=== PATIENT | male | born 1930 | race Caucasian/White ===

== ENCOUNTER 2016-11-28 11:06 | Inpatient (IN) | payer MEDICARE, BC ==
[~2016-11-28] VITALS: Ht 165.1 cm; Wt 101.0 kg
--- NOTE | ~2016-11-28 | CO ---
ADMIT: 11/28/2016 RM/LOC: 502 [facility] MR#: [id number] [address] [place] [phone] ANNAMARIA SHAW [address] [place] [address] Consultation Report SEX: M AGE: 86 : 1930 Corrected: 11/29/2016 0459 njv DATE OF CONSULTATION: 11/28/2016 ATTENDING PHYSICIAN: Maycol Agustin CONSULTING PHYSICIAN: Kurt Andujar MD CHIEF COMPLAINT: Left hip pain. HISTORY OF PRESENT ILLNESS: The patient is an 86-year-old male, who lives in a half-way in [place], normally sees Dr. Howard. He slipped and fell this morning, had an unwitnessed fall none noting his fall in the half-way in [place]. Found to have a right arm laceration. X-ray showed a left intertrochanteric fracture. He was transferred here for definitive care and treatment. PAST MEDICAL HISTORY: Past medical problems include chronic anemia, reflux, hypothyroidism, prostate cancer, hyperlipidemia, and dementia. ALLERGIES: PENICILLIN, SULFA, CODEINE, IODINE, SHELLFISH, AND VICODIN. SOCIAL HISTORY: Lives in half-way. REVIEW OF SYSTEMS: Negative. PHYSICAL EXAMINATION: An 86-year-old male, quite demented, pretty much averbal. He has pain with any motion of the left hip. Left leg slightly shortened and externally rotated. He has good pulses, full motor function, and normal sensation. DIAGNOSTIC DATA: X-rays; AP and lateral of left hip shows a left displaced intertrochanteric fracture, it is a basicervical type fracture, fairly low. No evidence of any pathologic lesions. ADMIT: 11/28/2016 RM/LOC: 502 [facility] MR#: [id number] [address] [place], [place] [id number] ANNAMARIA SHAW [address] [place] [address] Consultation Report SEX: M AGE: 86 : 1930 IMPRESSION: 1. Left basicervical intertrochanteric hip fracture. 2. Significant dementia. PLAN: At this point, we talked about different options at length with the niece. We are going to plan on proceeding with a left hip open reduction and internal fixation with trochanteric femoral nailing. They are aware of the risks, benefits, and options, and agreed to proceed. Dr. Agustin will clear today from a medical standpoint. Plan on proceeding to the OR tomorrow. Kurt Andujar MD/ leilani JOB #: [id number] CC: Maycol Agustin, Attending Physician Maycol Agustin, Family Physician Corrected: 11/29/2016 0459 njv
--- NOTE | ~2016-11-28 | CO ---
ADMIT: 11/28/2016 RM/LOC: 502 [facility] MR#: [id number] [id number] [place], [place] [address] ANNAMARIA SHAW [address] [place] [address] Consultation SEX: M AGE: 86 : 1930 DATE OF CONSULTATION: 12/02/2016 ATTENDING PHYSICIAN: Maycol Agustin CONSULTING PHYSICIAN: Charito Burns MD PROBLEM: Scrotal mass. HISTORY OF PRESENT ILLNESS: This 86-year-old gentleman, lives in a retirement in [place] and is under the care of Dr. Howard. On the day of admission, he slipped and fell, which was unwitnessed causing a left intratrochanteric fracture. On 11/29/2016, he underwent a left hip open reduction internal fixation with trochanteric femoral nail. Postoperatively, he has done well from orthopedic standpoint, but he was noted to have a large mass on the scrotum prompting urologic consultation. The patient is demented and is unable to give history. PAST HISTORY MEDICATIONS: Please see chart. ALLERGIES: PENICILLIN, SULFA, CODEINE, IODINE, SHELLFISH, AND VICODIN. OPERATIONS: As previously stated. REVIEW OF SYSTEMS: He does have a history of hyperlipidemia, dementia, reflux, chronic anemia, hypothyroidism, and prostate carcinoma. FAMILY HISTORY: Negative for urologic problems. SOCIAL HISTORY: He does live in a retirement. PHYSICAL EXAMINATION: GENERAL: This is an elderly 86-year-old demented male, who does not verbalize. ABDOMEN: Soft without masses or tenderness. Scrotum is normal with a pedunculated large skin tag in the most dependent portion on the right, which appears to be reddened and irritated, but no ulcerative lesions noted. ADMIT: 11/28/2016 RM/LOC: 502 [facility] MR#: [id number] 2620 [facility] [address] [place] [phone] ANNAMARIA SHAW [address] [place] [address] Consultation SEX: M AGE: 86 : 1930 IMPRESSION: Left scrotal skin tag. PLAN: We will plan to locally excise this in the near future at bedside. Thank you for allowing us to assist in the care of Mr. Shaw and we will follow along with you. Charito Burns MD/ leilani JOB #: [id number] CC: Maycol Agustin, Attending Physician Maycol Agustin, Family Physician MD Vivek Jacome MD Gregory S Sextro, MD
--- NOTE | 2016-11-30 13:15 | ER ---
ADMIT: 11/28/2016 RM/LOC: 502 [facility] MR#: [id number] 2620 [facility] [address] [place], [place] [address] ANNAMARIA SHAW [address] [place] [address] Emergency Room Report SEX: M AGE: 86 : 1930 DATE: 11/28/2016 BRIEF ADDENDUM: Please see my T-sheet for complete review of systems, past medical history, and physical exam. PRIMARY CARE DOCTOR: Trevor Ramirez from [place], [place]. CHIEF COMPLAINT: Fall. HISTORY OF PRESENT ILLNESS: This is an 86-year-old, demented male, who comes to us from [facility] in [place], [place]. He sustained an unwitnessed fall at the [facility] this morning in [place], [place]. Sustained a laceration of his right wrist and complained of left hip pain. He was transported to the [facility], where he was seen and evaluated, diagnosed with a left hip fracture. They did phone Dr. Gonsalez, who instructed them transfer here for further evaluation and management. They also did repair a 6 cm laceration to the right wrist. He is examined today, complains of primarily left hip pain. He does have a covered wound on his right wrist. REVIEW OF SYSTEMS: Difficult to obtain secondary to dementia. PAST MEDICAL HISTORY: Coronary artery disease, anemia, GERD, hypothyroidism, prostate cancer, hyperlipidemia, and dementia. ALLERGIES: TO PENICILLIN, SULFA, CODEINE, IODINE, SHELLFISH, AND VICODIN. COURSE IN THE EMERGENCY ROOM: PHYSICAL EXAMINATION: GENERAL: The patient was seen and examined. He is afebrile and nontoxic. Confused and disoriented secondary to his underlying dementia. HEENT: No obvious head trauma. NECK: Nontender. He does turn from left to right without complaints of pain. Eyes are equal and reactive. Extraocular testing is intact. He tracks across midline. Throat, non erythematous. No obvious dental injuries. CHEST: Nontender. Breath sounds normal bilaterally. HEART: Heart sounds. No gallops, murmurs, or rubs. ABDOMEN: Soft and nontender. NEURO: He is disoriented. He has a known dementia. He follows commands. Does not answer questions. He does move all 4 extremities. SKIN: Warm and dry. He does have a covered injury on his right wrist. BACK: No vertebral tenderness per his report. However, he is unable to sit up for me to assess this. EXTREMITIES: Atraumatic. PELVIS: Stable. He is unable to bear weight. Complains of left hip pain. I did review the fracture, significant for left hip fracture. LABORATORY DATA: Labs were obtained at [facility]. White count 7.8, hemoglobin 12.9, hematocrit 37.0, platelets 132. Sodium 139, potassium 3.7, BUN 13, ADMIT: 11/28/2016 RM/LOC: 502 [facility] MR#: [id number] [facility] [address] [address] ANNAMARIA SHAW [address] [place] [address] Emergency Room Report SEX: M AGE: 86 : 1930 glucose 120, creatinine 0.98. He did have an elevated TSH. While at the department, I did get some PT and PTTs ordered as well as a type and screen. I did CT his head, pending at this time. Phoned Dr. Agustin, made him aware of the patient via [facility]. He will admit primary with consult to Dr. Gonsalez for Orthopedic surgery. IMPRESSION: 1. Left hip fracture. 2. Laceration 6 cm, right inner wrist. 3. Dementia. 4. Coronary artery disease. 5. Hypothyroidism. 6. Hyperlipidemia. DISPOSITION: The patient will be admitted to the care of J[facility]ago Call with consult to Dr. Gonsalez for Orthopedic Surgery for possible fixation. Questions sought and answered to best of the patient's satisfaction. Discharged in guarded condition. JEAN Gonzalez / Ernesto Monterroso MD / leilani JOB #: [id number] CC: Maycol Agustin MD, Attending Physician Maycol Agustin MD, Family Physician
--- NOTE | 2016-12-04 16:45 | OR ---
ADMIT: 11/28/2016 RM/LOC: 502 [facility] MR#: [id number] [id number] [place], [place] [address] ANNAMARIA SHAW [address] [place] [address] Operative/Delivery Room Report SEX: M AGE: 86 : 1930 SURGERY DATE: 12/03/2016 SURGEON: Charito Burns MD PREOPERATIVE DIAGNOSIS: Scrotal skin tag. POSTOPERATIVE DIAGNOSIS: Scrotal skin tag. OPERATION: Excision of scrotal skin tag. ANESTHETIC: Local. INDICATION FOR PROCEDURE: This is an 86-year-old gentleman who was admitted for hip fracture and on admission was noted to have a large skin tag involving the right hemiscrotum. He is now to undergo removal of his skin tag. DESCRIPTION OF PROCEDURE: With the patient in the supine position, his genitalia and surrounding skin were then prepped and draped in the usual sterile fashion. 1% Xylocaine without epinephrine was then used to locally infiltrate the base of the scrotal skin tag. After a suitable local anesthetic was obtained, the skin tag was sharply removed using the tenotomy scissors. The wound edges were then reapproximated using interrupted 4-0 chromic catgut suture in a horizontal mattress fashion. A sterile dressing was applied, and patient, having tolerated the procedure well, was left in his room. The skin tag was then submitted to pathology for final microscopic diagnosis. Charito Burns MD/ leilani JOB #: [id number] CC: Maycol Agustin, Attending Physician Maycol Agustin, Family Physician Maycol Agustin MD
--- NOTE | 2016-12-04 21:16 | OR ---
ADMIT: 11/28/2016 RM/LOC: 502 [facility] MR#: [id number] [address] [address] ANNAMARIA SHAW [address] [place] [address] Operative/Delivery Room Report SEX: M AGE: 86 : 1930 SURGERY DATE: 11/29/2016 SURGEON: Kurt Andujar MD PREOPERATIVE DIAGNOSIS: Left basicervical intertrochanteric hip fracture. POSTOPERATIVE DIAGNOSIS: Left basicervical intertrochanteric hip fracture. PROCEDURES: Left hip open reduction and internal fixation with trochanteric femoral nail. SENIOR DIGITAL DESIGNER: JEAN Bergman. COMPLICATIONS: None. BLOOD LOSS: 50 mL. COMPONENTS: 1. 130 degree x 11 mm Synthes TFN nail. 2. A 90 mm spiral blade. 3. A locking bolt. DESCRIPTION OF PROCEDURE: The patient was taken to the operating room, received a general anesthetic. The left leg was placed in a traction boot, right leg abducted out of the field. Closed reduction was performed. He had a basicervical fracture with some trochanteric comminution. We did not feel it was amenable to a bipolar, it was quite low. Because of this, we elected to proceed with TFN. At that point, AP lateral images confirmed adequate reduction. At that point, the hip was prepped and draped. We made an incision above the tip of the trochanter, placed a guide pin through the fracture site down the medullary canal. We reamed the proximal trochanteric ADMIT: 11/28/2016 RM/LOC: 502 [facility] MR#: [id number] [address] [address] [place] ANNAMARIA [address] [place] [address] Operative/Delivery Room Report SEX: M AGE: 86 : 1930 area of the reamer. At that point, placed a 130 degree x 11 mm nail down the medullary canal. At that point, we placed a guide pin into the center of the femoral head on AP and lateral images. We reamed the lateral cortex. We then impacted a 90 mm spiral blade with good purchase into the femoral head. At that point, we compressed the fracture at the basicervical area to try and further compress the fracture site. We then locked the bolt proximally, placed a 40 mm locking bolt distally with an external jig with no undue difficulty. At that point, AP lateral images confirmed adequate reduction and good placement of all hardware. We then irrigated out the wounds. Closed the deep fascia with 0 Vicryl, subcutaneous with 2-0 Vicryl, and placed prabha in the skin. Applied sterile dressings. He was awakened from anesthesia, taken to recovery room in stable condition. No complications. Kurt Andujar MD/ leilani JOB #: [id number] CC: Maycol Agustin, Attending Physician Maycol Agustin, Family Physician
[2016-12-06] MEDS ORDERED: FEOSOL-DPS325 MG PO (14:39)
[2016-12-06] MEDS ORDERED: COREG DPS12.5 MG PO (14:39)
[2016-12-06] MEDS ORDERED: FLOMAX DPS0.4 MG PO (14:39)
[2016-12-06] MEDS ORDERED: CULTURELLE1 CAP PO (14:39)
[2016-12-06] MEDS ORDERED: CLARITIN DPS10 MG PO (14:39)
[2016-12-06] MEDS ORDERED: MYRBETRIQ25 MG PO (14:40)
[2016-12-06] MEDS ORDERED: POTASSIUM20 MEQ/15 PO (14:40)
[2016-12-06] MEDS ORDERED: LASIX DPS40 MG PO (14:40)
[2016-12-06] MEDS ORDERED: SYNTHROID DP0.075 MG PO (14:41)
[2016-12-06] MEDS ORDERED: THERAPEUTIC MUL1 TAB PO (14:41)
[2016-12-06] MEDS ORDERED: LOVENOX DP30 MG/0.3 SQ (14:41)
[2016-12-06] MEDS ORDERED: MYCOSTATIN PWD15 GM TP (14:41)
[2016-12-06] MEDS ORDERED: BENADRYL-DPS25 MG PO (14:42)
[2016-12-06] MEDS ORDERED: COLACE-DPS100 MG PO (14:42)
[2016-12-06] MEDS ORDERED: MAALOX DPS30 ML PO (14:42)
[2016-12-06] MEDS ORDERED: IMODIUM DPS2 MG PO (14:42)
[2016-12-06] MEDS ORDERED: TYLENOL DPS325 MG PO (14:43)
[2016-12-06] MEDS ORDERED: ROBITUSSIN DM D30 ML PO (14:43)
[2016-12-06] MEDS ORDERED: RESTORIL DPS15 MG PO ×2 (14:43→14:51)
[2016-12-06] MEDS ORDERED: ULTRAM DPS50 MG PO (14:43)
[2016-12-06] MEDS ORDERED: OCEAN NASAL MIS45 ML NS (14:44)
[2016-12-06] MEDS ORDERED: DULCOLAX-DPS10 MG PR (14:44)
[2016-12-06] MEDS ORDERED: EUCERIN CREME57 GM TP (14:45)
[2016-12-06] MEDS ORDERED: HYTONE 1% DPS30 GM TP (14:45)
[2016-12-06] MEDS ORDERED: ASPIRIN EC81 MG PO (14:46)
[2016-12-06] MEDS ORDERED: KENALOG OINT. 015 GM TP (14:46)
[2016-12-06] MEDS ORDERED: PRILOSEC DPS20 MG PO (14:48)
[2016-12-06] MEDS ORDERED: ATIVAN-DPS0.5 MG PO (14:52)
--- NOTE | 2016-12-23 07:04 | HP ---
ADMIT: 11/28/2016 RM/LOC: 502 [facility] MR#: [id number] [address] [place], [place] [address] ANNAMARIA SHAW [address] [place] [address] History and Physical SEX: M AGE: 86 : 1930 DATE OF SERVICE: CHIEF COMPLAINT: Left hip pain. HISTORY OF PRESENT ILLNESS: This is an 86-year-old, white male with advanced dementia, who resides at the [facility], who apparently fell today suffering a left hip fracture. He was transported to the emergency room here in [place] for definitive treatment under the care of Dr. Andujar. I have been asked to see him for preoperative clearance. He does not really provide any meaningful history secondary to his dementia, but he has two nieces here, who are involved in his care and they are helpful and filling in the blanks. He has not had any recent health concerns. He does have a history of coronary artery disease, but no recent chest pain, no shortness of breath, no fevers. He does have recurrent UTI, so we did do a UA which was unremarkable and it looks like he is on antibiotic prophylaxis. He has no electrolyte abnormalities and as EKG does not show any acute changes. PAST MEDICAL HISTORY: Remarkable for prostate cancer status post Lupron injections and radiation treatment, carotid disease status post bypass grafting as well as aortic valve repair, hypertension, gastroesophageal reflux disease, a remote history of a subdural hematoma from old records. Also a past history of anemia, hyperlipidemia, dementia, hypothyroidism. CURRENT MEDICATIONS: Include: 1. Aspirin 81 mg daily. 2. Furosemide 40 mg daily. 3. Loratadine 10 mg daily. 4. Potassium chloride 7.5 mEq daily. 5. Cefdinir 300 mg daily. 6. Mirabegron 50 mg daily. 7. Carvedilol 12.5 mg b.i.d. 8. Ferrous sulfate 325 mg b.i.d. 9. PreserVision b.i.d. 10.Omeprazole 20 mg b.i.d. 11.Probiotic b.i.d. 12.Levothyroxine 75 mcg daily. 13.Crestor 10 mg at bedtime. 14.Tamsulosin 0.4 mg at bedtime. 15.Diphenhydramine 25 mg q.6 hours p.r.n. 16.Eucerin daily as needed. 17.Gold Cheng medicated daily as needed. 18.Loperamide after each stool p.r.n. 19.Nystatin powder daily as needed. 20.Robitussin DM 10 mL every 4 hours p.r.n. 21.Saline nasal spray daily as needed. 22.Triamcinolone q.12 hours p.r.n. 23.Acetaminophen p.r.n. 24.Restoril 50 mg at bedtime. ADMIT: 11/28/2016 RM/LOC: 502 [facility] MR#: [id number] [address] [place] [phone] [address] [place] [address] History and Physical SEX: M AGE: 86 : 1930 ALLERGIES: SULFA. REVIEW OF SYSTEMS: Unobtainable secondary to his mental status. FAMILY HISTORY: Father had CHF and colon cancer. Mother of leukemia. One sister of multiple myeloma. PHYSICAL EXAMINATION: VITAL SIGNS: Blood pressure 125/65, pulse 77, respirations 20, temp 94. GENERAL: He is in no acute distress. He is alert. He is confused, which is his baseline. HEENT: Pupils are reactive. Conjunctivae are clear. Mild drying of mucous membranes. NECK: Soft and supple without lymphadenopathy. No thyromegaly. LUNGS: Clear to auscultation with normal respiratory effort. Decreased breath sounds. HEART: Regular rate and rhythm. ABDOMEN: Obese, soft, and nontender. EXTREMITIES: No cyanosis. No clubbing. There is 1+ lower extremity edema bilaterally. Does have marked left hemiscrotum, which is significantly enlarged, I suspect this is a large inguinal hernia. Also has a large dermal tag hanging off the right scrotum. LAB/X-RAY DATA: CK 195, MB 1.2. Troponin less than 0.02. Myoglobin was 363. White count is 7100, hemoglobin 12.9, platelets 132,000. Glucose 128, BUN 13, creatinine 0.98. Total protein 7.4, albumin 3.9, calcium 8.6, alkaline phosphatase 79, total bilirubin is 0.5. AST 51, ALT 37. Sodium 139, potassium 3.7, chloride 102, CO2 28.5, magnesium 2. TSH was 6.257. ASSESSMENT: 1. Left hip fracture. 2. Dementia. ADMIT: 11/28/2016 RM/LOC: [address] [place] [address] MR#: [id number] [address] [place] [phone] ANNAMARIA SHAW [address] [place] [address] History and Physical SEX: M AGE: 86 : 1930 3. Hypertension. 4. Coronary artery disease. 5. Left scrotal mass. 6. Hypothyroidism. PLAN: He appears to be euvolemic. His EKG shows nothing acute. There are no recent upper respiratory issues and I feel that he is probably as good as he will get his far as clearance for surgery and would plan on proceeding with the procedure as scheduled in tomorrow. We will repeat lab in the a.m. with some gentle hydration. Also check a scrotal ultrasound, however, do not think we would do anything with results, but I am concerned about the large scrotal mass. We will follow along in the perioperative period. Maycol Agustin MD/ leilani JOB #: [id number] CC: Maycol Agustin, Attending Physician Maycol Agustin, Family Physician
--- NOTE | 2017-01-28 10:20 | DS ---
ADMIT: 11/28/2016 RM/LOC: 502 [facility] MR#: [id number] [address] [place], [place] [address] ANNAMARIA SHAW [address] [place] [address] General Discharge Summary SEX: M AGE: 86 : 1930 ADMISSION DATE: 11/28/2016 DISCHARGE DATE: 12/05/2016 FINAL DIAGNOSIS: 1. Left intertrochanteric hip fracture. 2. Dementia. 3. Hypertension. 4. Coronary artery disease. 5. Left scrotal mass. 6. Right scrotal skin tag. REASON FOR ADMISSION: This is an an 86-year-old, white male who resides at the [facility] who fell suffering a left hip fracture. He is transported here for definitive therapy. HOSPITAL COURSE: He was admitted on 11/28/2016. Orthopedics was consulted. He was stabilized. His blood work showed no acute abnormalities that would preclude him from going to surgery, so he did have surgical repair on 11/29/2016. He had a little bit of difficulty with hypotension postoperatively, so he was given some IV fluids. His blood pressure responded nicely. On 11/30/2016, he did have a large left scrotal mass, so we did do an ultrasound, which did reveal fat but no incarceration of any hernia. On 11/30/2016, we did hold his Coreg and Lasix, as he was a little hypotensive. We continued his DNR/DNI status. He did develop a rash, so we did stop clindamycin and Omnicef. He was given Solu-Medrol. PT and OT followed. Speech Therapy was consulted. On 12/03/2016, telemetry was discontinued. We increased his Benadryl, gave him more Solu-Medrol for diffuse rash, Ativan for agitation. On , he was afebrile. We discontinued his Solu-Medrol. His Benadryl was changed to p.r.n. We did place him on some Diflucan for monilial type dermatitis as well as nystatin powder. He had an ulceration on that pedunculated skin tag. Urology was consulted. Ultimately they did remove it without difficulty. He unfortunately pulled his prabha out, so Dr. Andujar had to restaple on 12/03/2016. Dr. Johnson had started some Rocephin ADMIT: 11/28/2016 RM/LOC: 502 [facility] MR#: [id number] [address] [address] ANNAMARIA SHAW [address] [place] [address] General Discharge Summary SEX: M AGE: 86 : 1930 for sinusitis, which was evident on his CT scan and wrote for a hospice consult. On 12/04/2016, he had a worsening rash. He had no clinical signs of ,sinusitis, so we did stop the Rocephin. He was placed on Solu-Medrol. Supportive Care consult was obtained. We placed him on pureed diet and thickened liquids. The family, at that point, elected discharge with hospice and was discharged on 12/05/2016 back to the correction in [place] with hospice. DISCHARGE INSTRUCTIONS: Follow up with Dr. Gonsalez December 13 in [place], advance to a pleasure diet, DNR/DNI, Hospice to follow. Please see the discharge MAR for complete list of his discharge medications. It took longer than 30 minutes for coordination of discharge and transfer to the correction with hospice care. Maycol Agustin MD/ samuel JOB #: [id number] CC: Maycol Agustin MD, Attending Physician Maycol Agustin MD, Family Physician
== END 2016-12-05 12:30 | disposition short-term general hospital (02) | DRG 464 ==
LOC: ER 11:06 → 5MS 13:15
PROVIDERS: ADMIT Family Medicine
PROC: 0QS704Z Reposition Left Upper Femur with Internal Fixation Device, Open Approach (ICD-10-PCS; principal; 2016-11-29)
PROC: 0HBAXZZ Excision of Inguinal Skin, External Approach (ICD-10-PCS; 2016-12-03)
DX: S72.142A Displaced intertrochanteric fracture of left femur, initial encounter for closed fracture (principal); D62 Acute posthemorrhagic anemia; F05 Delirium due to known physiological condition; F03.91 Unspecified dementia, unspecified severity, with behavioral disturbance; Z51.5 Encounter for palliative care; B37.9 Candidiasis, unspecified; L91.8 Other hypertrophic disorders of the skin; S61.511A Laceration without foreign body of right wrist, initial encounter; I10 Essential (primary) hypertension; W18.30XA Fall on same level, unspecified, initial encounter; Y92.129 Unspecified place in nursing home as the place of occurrence of the external cause; I25.10 Atherosclerotic heart disease of native coronary artery without angina pectoris; K40.90 Unilateral inguinal hernia, without obstruction or gangrene, not specified as recurrent; R33.9 Retention of urine, unspecified; J32.9 Chronic sinusitis, unspecified; E66.9 Obesity, unspecified; Z68.31 Body mass index [BMI] 31.0-31.9, adult; I25.2 Old myocardial infarction; E03.9 Hypothyroidism, unspecified; E78.5 Hyperlipidemia, unspecified; Z85.46 Personal history of malignant neoplasm of prostate; K21.9 Gastro-esophageal reflux disease without esophagitis; Z86.79 Personal history of other diseases of the circulatory system; Z79.82 Long term (current) use of aspirin; Z95.2 Presence of prosthetic heart valve; Z66 Do not resuscitate